=== PATIENT | female | born 1955 | race Caucasian/White ===

== ENCOUNTER → 2020-09-11 | Outpatient (CLI) | payer OTHER ==
--- NOTE | 2020-09-11 16:26 | CARDNUC ---
[place] [address] CARDIAC NUCLEAR IMAGING REPORT Name: DEVAN REYNOLDS Room: [facility]#: [id number] Admission: 09/11/20 Attend Phys: Isael Ponce, Discharge: Date of : 55 Date of Service: 09/11/20 1626 Report #: [id number] THIS REPORT FOR: cc: Oma Rodríguez MD, Lin W. MD Liston, Michael J. MD [facility] ~ APPROVED REPORT Imaging Protocol: Rest Tc-99m/Stress Tc-99m 1 day Study performed: 09/11/2020 07:45:00 Indication: Chest pain, Dyspnea Patient Location: Out-Patient Stress Tech: [facility] Stress Nurse: Azalia Diez RN NM Tech:YARIEL Hurtado Ht: 5 ft 5 in Wt: 156 lbs BSA: 1.78 m2 BMI: 25.95 Medical History Medical History: CAD non obstructive, COPD Medications: asa 81 Allergies: No known drug allergies Cardiac Risk Factors: Age, Smoking, FHX of CAD Exercise History: Sedentary Resting Data Rest SPECT myocardial perfusion imaging was performed in supine position 30 minutes following the intravenous injection of 10.0 mCi of Tc-99m Sestamibi. Time of rest injection: 804 Date: 09/11/2020 The images were gated to evaluate regional wall motion and calculate left ventricular ejection fraction. Administration Route: IV Administration Site: Right Hand Pharmacologic Stress Pharmacologic stress test was performed by injecting Regadenoson 0.4 mg IV push over 10-15 seconds immediately followed by the intravenous injection of 33.9 mCi of Tc-99m Sestamibi. Time of stress injection: 1000 Date: 09/11/2020 Administration Route: IV Administration Site: [place] [address] CARDIAC NUCLEAR IMAGING REPORT Name: DEVAN REYNOLDS Room: [facility]#: [id number] Admission: 09/11/20 Attend Phys: Isael Ponce, Discharge: Date of : 55 Date of Service: 09/11/20 1626 Report #: [id number] Gated Stress SPECT was performed 40 minutes after stress injection. The images were gated to evaluate regional wall motion and calculate left ventricular ejection fraction. Prone imaging was performed. Stress Test Details Stress Test: Pharmacologic stress testing performed using 0.4 mg of regadenoson per 5 mL given IV over 10 seconds. Reason for pharmacologic stress test: physical limitation. 60 mg caffeine given for headache. HR Max Heart Rate (APMHR): 155 bpm Resting HR: 66 bpm Target HR (85% APMHR): 131 bpm Max HR Achieved: 106 bpm % of APMHR: 68 Recovery HR: 96 bpm BP Resting BP: 144/90 mmHg Max BP: 121/79 mmHg Recovery BP: 144/84 mmHg ECG Resting ECG: Sinus Rhythm Stress ECG: Sinus Tachycardia ST Change: None Arrhythmia: None Recovery ECG: Sinus Rhythm Recovery ST Change: None Recovery Arrhythmia: None Clinical Reason for Termination: Completed protocol The patient tolerated Lexiscan infusion without significant cardiac symptoms. Nurse Comments pt unable to walk on treadmill dt soa Stress ECG Conclusion The baseline twelve-lead EKG shows sinus rhythm without significant ST segment abnormality. EKGs obtained during and post Lexiscan infusion show sinus rhythm and sinus tachycardia with no significant ST segment or T wave changes when compared to baseline. There were no stress-induced arrhythmias[place] [address] CARDIAC NUCLEAR IMAGING REPORT Name: RODOLFODEVAN M Room: [facility]#: [id number] Admission: 09/11/20 Attend Phys: Isael Ponce, Discharge: Date of : 55 Date of Service: 09/11/20 1626 Report #: [id number] Study: Good Artifact: Mild Breast artifact Study Data At rest, the left ventricular ejection fraction was 72%.. Post stress, the left ventricular ejection was 72%.. TID = 0.93. Perfusion Perfusion images obtained at rest and post Lexiscan stress show mild photopenia in the distal anterior and apical wall consistent with breast attenuation artifact. Wall motion in this region is normal. No other significant fixed or reversible defects are identified. Wall Motion Normal left ventricular wall motion. Nuclear Conclusion ECG Findings: negative for ischemia Clinical Findings: negative for ischemia Nuclear Findings: negative for ischemia Exercise Capacity: not assessed Left Ventricular Function: normal Risk Study: low Perfusion images show no defect to suggest stress-induced ischemia. Global LV systolic function is normal. This is a low risk study. <Conclusion> The baseline twelve-lead EKG shows sinus rhythm without significant ST segment abnormality. EKGs obtained during and post Lexiscan infusion show sinus rhythm and sinus tachycardia with no significant ST segment or T wave changes when compared to baseline. There were no stress-induced arrhythmias. <ELECTRONICALLY SIGNED> By: Isael Ponce MD, FACC 09/11/20 1626 [id number] Isael Ponce MD, FACC /INF
== END ==
LOC: M.NUC 07:37
PROVIDERS: ATTEND Internal Medicine Cardiovascular Disease
DX: R00.0 Tachycardia, unspecified (principal); I25.10 Atherosclerotic heart disease of native coronary artery without angina pectoris

== ENCOUNTER → 2020-09-15 | Outpatient (CLI) | payer OTHER ==
[2020-09-15 09:03] LABS: CHOLESTEROL 168 mg/dL (<200); HDL CHOLESTEROL 62 mg/dL (>40); LDL CHOLESTEROL 100 mg/dL (<100); TC:HDL 2.7 Ratio (Not establshd); TRIGLYCERIDE 34 mg/dL (<150); VLDL 7 mg/dL (<40)
[2020-09-15 09:07] LABS: SERUM ASSESSMENT Clear
== END ==
LOC: M.LAB 08:33
PROVIDERS: ATTEND Internal Medicine Cardiovascular Disease
DX: I25.10 Atherosclerotic heart disease of native coronary artery without angina pectoris (principal)

== ENCOUNTER → 2020-10-09 | Outpatient (CLI) | payer OTHER ==
[2020-10-09 13:54] LABS: CALCIUM 9.2 mg/dL (8.5-10.1); CREATININE 0.6 mg/dL (0.6-1.3); POTASSIUM 4.1 mmol/L (3.5-5.1)
== END ==
LOC: M.LAB 13:14
PROVIDERS: ATTEND Nurse Practitioner
DX: I10 Essential (primary) hypertension (principal)